=== PATIENT | male | born 1960 | race African-American/Black ===

== ENCOUNTER 2021-11-28 20:15 | Emergency (ER) | payer MEDICAID ==
[~2021-11-28] VITALS: Ht 175.3 cm; Wt 100.0 kg
--- NOTE | 2021-11-28 20:36 | PHYS DOC ---
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 long term states he also was upset today because he found out some things about his medications and insurance from his family that he did not like and has been upset all day. States has been taking all his medications as prescribed. Denies any recent travels, traumas, illnesses, fevers, chest pain, shortness of breath, abdominal pain, nausea, vomiting, diarrhea, dysuria, hematuria or blood in stool. Denies any numbness/weakness/tingling. Denies any dyspnea on exertion, orthopnea, PND or edema. Review of Systems Review of Systems Review of systems otherwise unremarkable except noted in HPI Physical Exam Physical Exam Constitutional: Well developed, well nourished, no acute distress, non-toxic appearance. [] HENT: Normocephalic, atraumatic, bilateral external ears normal, oropharynx moist, no oral exudates, nose normal. [] Eyes: PERRLA, EOMI, conjunctiva normal, no discharge. [] Neck: Normal range of motion, no tenderness, supple, no stridor. [] Cardiovascular:Heart rate regular rhythm, no murmur [] Lungs & Thorax: Bilateral breath sounds clear to auscultation [] Abdomen: soft, no tenderness, no masses, no pulsatile masses. [] Skin: Warm, dry, no erythema, no rash. [] Back: No tenderness, no CVA tenderness. [] Extremities: No tenderness, no cyanosis, no clubbing, ROM intact, no edema. [] Neurologic: Alert and oriented X 3, normal motor function, normal sensory function, able to sit, stand and walk without issue, no focal deficits noted. [] Psychologic: Affect, and mood at baseline other than being sad about his insurance today per penitentiary EKG EKG [] Radiology/Procedures Radiology/Procedures [] Heart Score C/O Chest Pain: No Risk Factors: Risk Factors: DM, Current or recent (<one month) smoker, HTN, HLP, family history of CAD, obesity. Risk Scores: Risk Factors: DM, Current or recent (<one month) smoker, HTN, HLP, family history of CAD, obesity. Course & Med Decision Making Course & Med Decision Making Patient is a 61-year-old male with a history of TBI coming from a penitentiary with a main chief complaint of uncontrolled hypertension despite medications stating he was emotional today after talking to his sister Vital signs notable for hypertension. Physical exam noted above. Given medications for blood pressure which he responded to well. EKG with a rate of 77, QRS of 100, QTc 418, no STEMI. Troponin not concerning. Chest x-ray not concerning. Laboratory analysis not concerning for endorgan damage. Discussed all findings with patient. Advised to take medications as prescribed. Advised to follow-up in the morning with primary care physician. Gave return precautions to the ED. Patient grateful, verbalized understanding and agreed with plan of discharge back to nursing. [] Dragon Disclaimer Dragon Disclaimer This electronic medical record was generated, in whole or in part, using a voice recognition dictation system. Departure Departure: Impression: Primary Impression: Uncontrolled hypertension Disposition: HOME / SELF CARE / HOMELESS Condition: STABLE Referrals: JUAN HANEY MD Patient Instructions: Hypertension Additional Instructions: Thank for coming into the emergency department tonight and allowing us to take care of you. Please read the attached information carefully to go over things we discussed. Please be sure to take all of your medications as prescribed. Manny alegria follow-up first thing tomorrow with your primary care physician update on your ED visit and set up of post ER follow-up visit immediately for discussions on management of your high blood pressure medications. Please come back with new or concerning symptoms as we discussed. DAVE CRUZ MD Nov 28, 2021 20:36
--- NOTE | 2021-11-28 21:04 | RAD ---
XR CHEST 1V History: Reason: HTN / Spl. Instructions: / History: Comparison: None. Findings: No consolidation or pleural effusion. Normal heart size. No pneumothorax. Impression: 1. No acute cardiopulmonary process. Electronically signed by: Humberto Panchal DO (11/28/2021 9:02 PM) [facility] [place]
[2021-11-28] MEDS: LABETALOL 20 MG/4 ML DISP.SYRIN. IVP ONE (21:14)
[2021-11-28 21:16] LABS: BASO % 1 % (0-3); EOS % 1 % (0-3); HEMATOCRIT 44.6 % (39.0-53.0); HEMOGLOBIN 14.8 g/dL (13.0-17.5); LYMPH % 38 % (24-48); MEAN CORPUSCULAR HEMOGLOBIN 29 pg (25-35); MEAN CORPUSCULAR HGB CONC 33 g/dL (31-37); MEAN CORPUSCULAR VOLUME 86 fL (79-100); MONO # 0.9 x10^3/uL (0.0-1.1); MONO % 17 % (0-9); NEUT # 2.2 x10^3uL (1.8-7.7); NEUT % 43 % (31-73); PLATELET COUNT 141 x10^3/uL (140-400); RED BLOOD COUNT 5.19 x10^6/uL (4.30-5.70); RED CELL DISTRIBUTION WIDTH 13.2 % (11.5-14.5); WHITE BLOOD COUNT 5.1 x10^3/uL (4.0-11.0)
[2021-11-28 21:20] LABS: CALCIUM 8.8 mg/dL (8.5-10.1); GFR 92.2; POTASSIUM 4.1 mmol/L (3.5-5.1)
[2021-11-28 21:26] LABS: ALBUMIN 3.3 g/dL (3.4-5.0); ALBUMIN/GLOBULIN RATIO 0.8 (1.0-1.7); MAGNESIUM 1.7 mg/dL (1.8-2.4); TOTAL BILIRUBIN 0.5 mg/dL (0.2-1.0); TOTAL PROTEIN 7.6 g/dL (6.4-8.2)
[2021-11-28] MEDS: MAGNESIUM OXIDE 400 MG TABLET PO ONE (22:45)
--- NOTE | 2021-11-29 00:20 | EKG ---
[address] [address] Test Date: 2021-11-28 Test Time: 20:41:41 Pat Name: MARIBEL MARIN Department: Room: Gender: M Supervisor Cd Area: : 1960 Requested By: DAVE CRUZ Order Number: [id number] Reading MD: Measurements Intervals [place] Rate: 77 P: 39 CO: 202 QRS: -7 QRSD: 100 T: 16 QT: 368 QTc: 418 Interpretive Statements SINUS RHYTHM LEFTWARD AXIS QRS(T) CONTOUR ABNORMALITY CONSIDER ANTEROSEPTAL MYOCARDIAL DAMAGE POSSIBLY ABNORMAL ECG RI6.01 No previous ECG available for comparison
[2021-11-29 02:58] VITALS: BP 162/77
== END 2021-11-29 10:25 | disposition home or self-care (01) ==
LOC: ER 20:15
DX: I10 Essential (primary) hypertension (principal)
CPT/HCPCS: 36415; 71045; 80053; 83735; 84484; 85025; 93005; 96374; 99285; J3490

== ENCOUNTER 2021-12-19 01:19 | Emergency (ER) | payer MEDICAID ==
[~2021-12-19] VITALS: Ht 165.1 cm; Wt 107.7 kg
--- NOTE | 2021-12-19 01:22 | PHYS DOC ---
Past History Past Medical History: Arthritis, Dementia, Hypertension Past Medical History TBI Past Surgical History: Other Alcohol Use: None General Adult HPI: HPI: ".. I signed my self out... I did not like the long term food... it was bubo sandwiches.. shit sandwiches.. so I left.. I got tired of walking.. so I laid down in the road. ... the [facility]..... call ed the ambulance... since .. they did not want to give me a ride to [place]... ".. " The long term.. also been putting plastic.. in my food...".. " I need to go.. I got my ride .... here..." Patient is a 61 year old male who presents with above hx and complaints of hypertension and getting bad food at the [facility]. Pt. stated he signed himself out of the long term since they were giving him bad food. Patient seen previously in ED on11/28 with similar complaints. Patient does have a history of traumatic brain injury. Patient only follows at the [facility]. Patient states that nursing homes not giving his medicines as they are a or prescribed. Patient denies any travel, denies any trauma, denies any new illnesses. Patient denies any fever or chills. Patient denies any chest pain. Patient does state he does get short of breath when he is walking too far, patient denies any abdomen pain, nausea, vomiting, diarrhea, dysuria hematuria or blood in stools. Patient denies any new numbness, weakness, tingling. Patient denies any current dyspnea dyspnea but states if he has to walk to 4 he gets short of breath. Patient denies any proximal nocturnal dyspnea, patient denies any edema. Patient's only current complaint is that he has high blood pressure. Review of Systems: Review of Systems: Constitutional: Denies fever or chills Eyes: Denies change in visual acuity HENT: Denies nasal congestion or sore throat Respiratory: Denies cough or shortness of breath Cardiovascular: Denies chest pain or edema GI: Denies abdominal pain, nausea, vomiting, bloody stools or diarrhea : Denies dysuria Musculoskeletal: "Tired of walking" Integument: Denies rash Neurologic: Denies headache, focal weakness or sensory changes Endocrine: Denies polyuria or polydipsia Lymphatic: Denies swollen glands Psychiatric: Denies depression or anxiety Family History: Family History: Noncontributory to presentation Current Medications: Current Meds: See nursing for home meds Allergies: Allergies: Allergies Coded Allergies Type Severity Reaction Last Updated Verified No Known Drug Allergies 11/28/21 No Physical Exam: PE: Constitutional:, no acute distress, non-toxic appearance. [] HENT: Normocephalic, atraumatic, bilateral external ears normal, oropharynx moist, no oral exudates, nose normal. [] Eyes: PERRLA, EOMI, conjunctiva normal, no discharge. [] Neck: Normal range of motion, no tenderness, supple, no stridor. [] Cardiovascular: Tachycardia heart rate regular rhythm, no murmur [] Lungs & Thorax: Bilateral breath sounds clear to auscultation [] Abdomen: Bowel sounds normal, soft, no tenderness, no masses, no pulsatile masses. [] Skin: Warm, dry, no erythema, no rash. [] Back: No tenderness, no CVA tenderness. [] Extremities: No tenderness, no cyanosis, no clubbing, ROM intact, no edema. [] Neurologic: Alert and oriented X 3, normal motor function, normal sensory function, no focal deficits noted. [] Psychologic: Affect normal, judgement normal, mood normal. [] EKG: EKG: My interpretation EKG shows a sinus tachycardia 112 bpm. Left axis. No findings acute STEMI of contralateral changes. Time of EKG 128 [] Radiology/Procedures: Radiology/Procedures: Pt. declined[] Heart Score: C/O Chest Pain: N/A HEART Score for Chest Pain: HEART Score for Chest Pain Response (Comments) Value History Slighlty/Non-Suspicious 0 ECG Nonspecific Repolarizatio 1 Age >45 - < 65 1 Risk Factors 1 or 2 Risk Factors 1 Total 3 Risk Factors: Risk Factors: DM, Current or recent (<one month) smoker, HTN, HLP, family history of CAD, obesity. Risk Scores: Score 0 - 3: 2.5% MACE over next 6 weeks - Discharge Home Score 4 - 6: 20.3% MACE over next 6 weeks - Admit for Clinical Observation Score 7 - 10: 72.7% MACE over next 6 weeks - Early Invasive Strategies Course & Med Decision Making: Course & Med Decision Making Pertinent Labs and Imaging studies reviewed. (See chart for details) Patient requesting discharge shortly after arrival. Pt. declines work up. Pt. to followup at [facility], recommend patient not sign himself out of long term placement. Patient wear clonidine patch until follow-up at [facility]. Patient return if any concerns Impression: 1. Hypertension 2. Non-compliance with medical recommendations 3. Hx. TBI [] Dragon Disclaimer: Dragon Disclaimer: This electronic medical record was generated, in whole or in part, using a voice recognition dictation system. Departure Departure: Referrals: KEVEN FRANKLIN MD (PCP) Tino Disclaimer This chart was dictated in whole or in part using Voice Recognition software in a busy, high-work load, and often noisy Emergency Department environment. It may contain unintended and wholly unrecognized errors or omissions. Dragon Disclaimer This chart was dictated in whole or in part using Voice Recognition software in a busy, high-work load, and often noisy Emergency Department environment. It may contain unintended and wholly unrecognized errors or omissions. FRANCINE DANIEL MD December 19, 2021 01:22
[2021-12-19 01:58] VITALS: BP 162/70
[2021-12-19] MEDS ORDERED: cloNIDine HCL 0.1 MG TABLET PO ONE (02:00)
--- NOTE | 2021-12-19 06:44 | EKG ---
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
== END 2021-12-19 03:06 | disposition home or self-care (01) ==
LOC: ER 01:19
DX: I10 Essential (primary) hypertension (principal); M19.90 Unspecified osteoarthritis, unspecified site; F03.90 Unspecified dementia, unspecified severity, without behavioral disturbance, psychotic disturbance, mood disturbance, and anxiety; Z91.14 Patient's other noncompliance with medication regimen; Z87.820 Personal history of traumatic brain injury
CPT/HCPCS: 93005; 99283